=== PATIENT | male | born 1940 | race Caucasian/White ===

== ENCOUNTER 2018-09-01 11:20 | Observation (INO) | payer MEDICARE ==
[~2018-09-01 11:20] MED LIST: traMADol 50 MG Tab**OWN MED PO SCH
--- NOTE | 2018-09-01 13:20 | CT ---
Date of Service: 09/01/18 Clinical Data: TIA UNENHANCED BRAIN CT: Multislice acquisition through the brain without IV contrast was performed. No priors. There is diffuse cerebral atrophy. There are periventricular lucencies bilaterally consistent with small vessel ischemic change. No masses or mass effect. No intracranial hemorrhage. No evidence of acute or subacute infarct. No osseous abnormalities. IMPRESSION: No acute intracranial abnormalities. [id number] [facility]
[2018-09-01] MEDS ORDERED: Acetaminophen 325 MG Tab ONE ×2 (14:14→14:33)
[2018-09-01] MEDS ORDERED: Sodium Chloride 0.9% 1,000 ML IV SCH (14:30)
--- NOTE | 2018-09-01 15:02 | PCM.HP ---
H&P History of Present Illness - General Date of Service: 09/01/18 Admit Problem/Dx: Admission Diagnosis/Problem Admission Diagnosis/Problem Leukocytosis Source of Information: Patient, Family History Limitations: Reports: No Limitations - History of Present Illness Initial Comments - Free Text/Narative: This is a 78yo M seen in the ER for confusion and concerns of TIA symptoms per his . His states he is not acting the same and has difficulty walking and even talking. He denies any concerns today. Onset of Symptoms: Reports: Today, Sudden Duration of Symptoms: Reports: Hour(s):, Resolved Prior to Arrival Location: Reports: Generalized Severity: Moderate Improves with: Reports: None Worsens with: Reports: None Associated Symptoms: Reports: Confusion - Related Data Allergies/Adverse Reactions: Allergies Allergy/AdvReac Type Severity Reaction Status Date / Time No Known Allergies Allergy Verified 03/14/15 10:19 Home Medications: Home Meds Dorzolamide HCl/Timolol Maleat [Dorzolamide-Timolol Eye Drops] 1 drop 03/13/15 [ History] Gemfibrozil 600 mg PO BID 03/13/15 [History] Hydrochlorothiazide/Lisinopril [Lisinopril-HCTZ 20-25 MG] 20 - 25 mg PO DAILY [History] Insuln Asp Prot/Insulin Aspart [NovoLOG Mix 70-30] 56 units SUBCUT BID 03/13/15 [History] Simvastatin 1 tab PO DAILY 03/13/15 [History] Tamsulosin HCl 1 tab PO DAILY 03/13/15 [History] Warfarin [Coumadin] 1.5 tab PO DAILY 03/13/15 [History] amLODIPine Besylate [Amlodipine Besylate] 10 tab PO DAILY 03/13/15 [History] metFORMIN HCl [Metformin HCl ER] 1 tab PO TID 03/13/15 [History] Past Medical History Other HEENT History: throat crushed in 96, drops for glacoma Other Musculoskeletal History: chronic buttock pain - Past Surgical History Other Musculoskeletal Surgeries/Procedures:: L TKA 04/14, R shoulder decompression October 2014, L carpal tunnel surgery Dec 2014 H&P Review of Systems - Review of Systems: Review Of Systems: ROS reveals no pertinent complaints other than HPI. Exam - Exam Exam: See Below - Exam General: Alert, Oriented, Cooperative HEENT: PERRLA, Conjunctiva Clear, EACs Clear, EOMI, Hearing Intact Neck: Supple, Trachea Midline Lungs: Clear to Auscultation, Normal Respiratory Effort Cardiovascular: Regular Rate, Regular Rhythm GI/Abdominal Exam: Normal Bowel Sounds, Soft, Non-Tender Back Exam: Normal Inspection Extremities: Normal Inspection Peripheral Pulses: 2+: Dorsalis Pedis (L), Dorsalis Pedis (R) Skin: Warm, Dry, Intact Neurological: Cranial Nerves Intact Neuro Extensive - Mental Status: Alert, Oriented x3, Normal Mood/Affect, Normal Cognition, Memory Intact Psychiatric: Alert, Normal Affect, Normal Mood - Patient Data Lab Results Last 24 hrs: Laboratory Results - last 24 hr 09/01/18 09/01/18 09/01/18 Range/Units 12:09 12:09 12:09 WBC 17.4 H D (4.0-11.0) K/uL RBC 4.46 L (4.50-6.50) M/uL Hgb 13.6 (13.0-18.0) g/dL Hct 41.4 (40.0-54.0) % MCV 93 (76-96) fL MCH 30.5 (27.0-32.0) pg MCHC 32.9 (31.0-35.0) g/dL RDW 13.5 (11.0-16.0) % Plt Count 184 (150-400) K/uL MPV 10.8 H (6.0-10.0) fL Neut % (Auto) 94.0 H (45.0-70.0) % Lymph % (Auto) 2.2 L (20.0-40.0) % [place] % (Auto) 3.6 (3.0-10.0) % Eos % (Auto) 0.0 L (1.0-5.0) % Baso % (Auto) 0.2 (0.0-0.5) % Neut # (Auto) 16.31 H (2.00-7.50) K/uL Lymph # (Auto) 0.39 L (1.50-4.00) K/uL [place] # (Auto) 0.63 (0.20-0.80) K/uL Eos # (Auto) 0.00 L (0.04-0.40) K/uL Baso # (Auto) 0.03 (0.02-0.10) K/uL PT 14.0 H D (9.0-11.5) sec INR 1.4 D (1.0-3.5) Sodium 134 L (136-145) mmol/L Potassium 4.1 (3.5-5.1) mmol/L Chloride 98 (98-107) mmol/L Carbon Dioxide 25.4 (21.0-32.0) mmol/L Anion Gap 14.7 (5.0-15.0) mmol/L BUN 20 D (8-26) mg/dL Creatinine 1.24 (0.70-1.30) mg/dL Est Cr Clr Drug Dosing TNP Estimated GFR (MDRD) 57 L (>60) MLS/MIN BUN/Creatinine Ratio 16.1 (6-25) Glucose 298 H D (74-100) mg/dL Calcium 8.8 (8.5-10.1) mg/dL Total Bilirubin 1.5 H D (0.0-1.0) mg/dL AST 14 L (15-37) U/L ALT 18 (12-78) U/L Alkaline Phosphatase 80 (46-116) U/L Troponin I < 0.017 (0.000-0.060) ng/mL Total Protein 7.4 (6.4-8.2) g/dL Albumin 3.7 (3.4-5.0) g/dL Globulin 3.7 (2.2-4.2) g/dL Albumin/Globulin Ratio 1.0 (0.8-2.0) TSH, Ultra Sensitive 1.363 (0.358-3.740) uIU/mL Urine Color Urine Appearance (CLEAR) Urine pH (5.0-8.0) Ur Specific [place] (1.003-1.030) Urine Protein (NEGATIVE) mg/dL Urine Glucose (UA) (NEGATIVE) mg/dL Urine Ketones (NEGATIVE) mg/dL Urine Occult Blood (NEGATIVE) Urine Nitrite (NEGATIVE) Urine Bilirubin (NEGATIVE) Urine Urobilinogen (0.2-1.0) E.U./dL Ur Leukocyte Esterase (NEGATIVE) Urine RBC /HPF Urine WBC /HPF Ur Squamous Epith Cells /HPF Urine Bacteria /HPF 09/01/18 Range/Units 13:22 WBC (4.0-11.0) K/uL RBC (4.50-6.50) M/uL Hgb (13.0-18.0) g/dL Hct (40.0-54.0) % MCV (76-96) fL MCH (27.0-32.0) pg MCHC (31.0-35.0) g/dL RDW (11.0-16.0) % Plt Count (150-400) K/uL MPV (6.0-10.0) fL Neut % (Auto) (45.0-70.0) % Lymph % (Auto) (20.0-40.0) % [place] % (Auto) (3.0-10.0) % Eos % (Auto) (1.0-5.0) % Baso % (Auto) (0.0-0.5) % Neut # (Auto) (2.00-7.50) K/uL Lymph # (Auto) (1.50-4.00) K/uL [place] # (Auto) (0.20-0.80) K/uL Eos # (Auto) (0.04-0.40) K/uL Baso # (Auto) (0.02-0.10) K/uL PT (9.0-11.5) sec INR (1.0-3.5) Sodium (136-145) mmol/L Potassium (3.5-5.1) mmol/L Chloride (98-107) mmol/L Carbon Dioxide (21.0-32.0) mmol/L Anion Gap (5.0-15.0) mmol/L BUN (8-26) mg/dL Creatinine (0.70-1.30) mg/dL Est Cr Clr Drug Dosing Estimated GFR (MDRD) (>60) MLS/MIN BUN/Creatinine Ratio (6-25) Glucose (74-100) mg/dL Calcium (8.5-10.1) mg/dL Total Bilirubin (0.0-1.0) mg/dL AST (15-37) U/L ALT (12-78) U/L Alkaline Phosphatase (46-116) U/L Troponin I (0.000-0.060) ng/mL Total Protein (6.4-8.2) g/dL Albumin (3.4-5.0) g/dL Globulin (2.2-4.2) g/dL Albumin/Globulin Ratio (0.8-2.0) TSH, Ultra Sensitive (0.358-3.740) uIU/mL Urine Color Yellow Urine Appearance Clear (CLEAR) Urine pH 7.0 (5.0-8.0) Ur Specific [place] 1.015 (1.003-1.030) Urine Protein Negative (NEGATIVE) mg/dL Urine Glucose (UA) Negative (NEGATIVE) mg/dL Urine Ketones Negative (NEGATIVE) mg/dL Urine Occult Blood Trace-intact H (NEGATIVE) Urine Nitrite Negative (NEGATIVE) Urine Bilirubin Negative (NEGATIVE) Urine Urobilinogen 1.0 (0.2-1.0) E.U./dL Ur Leukocyte Esterase Negative (NEGATIVE) Urine RBC 0-5 H /HPF Urine WBC Not seen /HPF Ur Squamous Epith Cells Not seen /HPF Urine Bacteria Not seen /HPF Result Diagrams: 09/01/18 12:09 09/01/18 12:09 - Problem List (1) Leukocytosis SNOMED Code(s): 584285470, 012471136 ICD Code: D72.829 - ELEVATED WHITE BLOOD CELL COUNT, UNSPECIFIED Status: Acute Current Visit: Yes (2) Fever SNOMED Code(s): 120553704 ICD Code: R50.9 - FEVER, UNSPECIFIED Status: Acute Current Visit: Yes (3) Confusion SNOMED Code(s): 231165945 ICD Code: R41.0 - DISORIENTATION, UNSPECIFIED Status: Acute Current Visit : Yes Problem List Initiated/Reviewed/Updated: Yes Orders Last 24hrs: Active Orders 24 hr Category Date Time Status Patient Status [ADT] Routine ADT 09/01/18 14:53 Active EKG Documentation Completion [RC] ASDIRECTED Care 09/01/18 11:44 Active Oxygen Therapy [RC] PRN Care 09/01/18 14:53 Active Vital Signs [RC] Q4H Care 09/01/18 14:53 Active Regular Diet [DIET] Diet 09/01/18 Dinner Ordered Chest 1V Frontal [CR] Stat Exams 09/01/18 13:24 Taken CULTURE BLOOD [BC] Stat Lab 09/01/18 14:30 Received CULTURE BLOOD [BC] Stat Lab 09/01/18 14:30 Received CULTURE MRSA SURVEY [RM] Routine Lab 09/01/18 14:42 Received INFLUENZA A+B AG SCREEN [RM] Stat Lab 09/01/18 14:30 Received Assessment/Plan Comment:: Patient was found to have a febrile temp of 104.4. He does have leukocytosis and there does not appear to be a focus of infection. We will place in observation and start prophylactic antibiotics and repeat labs in the AM. Discussed plan of care with and patient and they agree with the plan of care.
[2018-09-01] MEDS: Piperacillin/Tazobactam 3.375 GM in Sodium Chloride 0.9% 100 ML IV SCH ×2 (17:50→23:58)
[2018-09-01] MEDS ORDERED: Acetaminophen 325 MG Tab PO PRN (19:00)
[2018-09-01] MEDS ORDERED: Warfarin 7.5 MG Tab PO ONE (19:28)
[2018-09-01] MEDS ORDERED: metFORMIN 500 MG Tab PO ONE (19:28)
[2018-09-01] MEDS ORDERED: Dorzolamide/Timolol 2%-0.5% Ophth Soln 10 ML Bottle EYEBOTH SCH (20:00)
[2018-09-01] MEDS ORDERED: Insuln Aspart Prot/Insulin Aspart 100 Units/ML 3 ML FlexPen SUBCUT SCH (20:00)
[2018-09-02] MEDS: Piperacillin/Tazobactam 3.375 GM in Sodium Chloride 0.9% 100 ML IV SCH (05:51)
[2018-09-02] MEDS ORDERED: CINNAMON BARK PO SCH (08:00)
[2018-09-02] MEDS ORDERED: INSULIN ASPART PROTAMINE SUBCUT SCH (08:00)
[2018-09-02] MEDS ORDERED: Simvastatin 20 MG Tab PO SCH (08:00)
[2018-09-02] MEDS ORDERED: amLODIPine 10 MG Tab PO SCH (08:00)
[2018-09-02] MEDS ORDERED: Calcium Carbonate 600 MG Tab PO SCH (08:00)
[2018-09-02] MEDS ORDERED: INSULIN ASPART SUBCUT SCH (08:00)
[2018-09-02] MEDS ORDERED: Non-Formulary Medication 1 Each (Multivitamin [Multi-Vitamin Daily] 1 TAB) PO SCH (08:00)
[2018-09-02] MEDS ORDERED: metFORMIN 500 MG Tab.ER**OWN MED PO SCH (09:15)
[2018-09-02] MEDS ORDERED: GEMFIBROZIL 600 MG PO SCH (09:15)
[2018-09-02 09:40] VITALS: BP 124/69
[2018-09-02] MEDS ORDERED: Amoxicillin/Clavulanate K 875-125 MG Tab ONE (11:45)
--- NOTE | 2018-09-02 12:48 | PCM.DCSUM1 ---
Discharge Summary - Discharge Data Discharge Date: 09/02/18 Discharge Disposition: Home, Self-Care 01 Condition: Good - Discharge Diagnosis/Problem(s) (1) Leukocytosis SNOMED Code(s): 950060696, 949938996 ICD Code: D72.829 - ELEVATED WHITE BLOOD CELL COUNT, UNSPECIFIED Status: Resolved Current Visit: Yes (2) Fever SNOMED Code(s): 493566343 ICD Code: R50.9 - FEVER, UNSPECIFIED Status: Resolved Current Visit: Yes (3) Confusion SNOMED Code(s): 440690679 ICD Code: R41.0 - DISORIENTATION, UNSPECIFIED Status: Resolved Current Visit: Yes - Discharge Plan Home Medications: Home Meds Dorzolamide HCl/Timolol Maleat [Dorzolamide-Timolol Eye Drops] 1 drop EYEBOTH QPM 03/13/15 [History] Gemfibrozil 600 mg PO BID 03/13/15 [History] Hydrochlorothiazide/Lisinopril [Lisinopril-HCTZ 20-25 MG] 1 tab PO DAILY@1600 [History] Insuln Asp Prot/Insulin Aspart [NovoLOG Mix 70-30] 18 units SUBCUT BID 03/13/15 [History] Tamsulosin HCl 1 tab PO DAILY@1600 03/13/15 [History] Warfarin [Coumadin] 1.5 tab PO ASDIRECTED 03/13/15 [History] amLODIPine Besylate [Amlodipine Besylate] 10 mg PO DAILY@1600 03/13/15 [History] metFORMIN HCl [Metformin HCl ER] 1 tab PO TID@08,16,20 03/13/15 [History] Calcium Carbonate [Calcium] 1 tab PO QPM 09/01/18 [History] Cinnamon Bark [Cinnamon] 2 tab PO QPM 09/01/18 [History] Multivitamin [Multi-Vitamin Daily] 1 tab PO DAILY 09/01/18 [History] traMADol HCl [Tramadol HCl] 100 mg PO BID@0800,1600 09/01/18 [History] Latanoprost 1 drop EYEBOTH QPM 09/02/18 [History] Warfarin Sodium [Jantoven] 1 tab PO ASDIRECTED 09/02/18 [History] Patient Handouts: Fever, Adult, Amoxicillin; Clavulanic Acid tablets, Leukocytosis - Discharge Summary/Plan Comment DC Time >30 min.: No Discharge Summary/Plan Comment: Counseled on finishing antibiotics and side effects including diarrhea and f/u if symptoms persist. Discussed f/u labs and blood culture. Rtc as directed for f /u. Counseled on further monitoring and f/u as needed. - Patient Data Vitals - Most Recent: Last Vital Signs Temp 37.1 C 09/02/18 09:00 Pulse 75 09/02/18 09:00 Resp 16 09/02/18 09:00 BP 124/69 09/02/18 09:00 Pulse Ox 97 09/02/18 09:00 Weight - Most Recent: 109.883 kg I&O - Last 24 hours: Intake & Output 09/01/18 09/02/18 09/02/18 22:59 06:59 14:59 Intake Total 1163 Balance 1163 Lab Results - Last 24 hrs: Laboratory Results - last 24 hr 09/01/18 09/02/18 09/02/18 Range/Units 13:22 08:30 08:30 WBC 11.0 D (4.0-11.0) K/uL RBC 4.02 L (4.50-6.50) M/uL Hgb 12.4 L (13.0-18.0) g/dL Hct 37.7 L (40.0-54.0) % MCV 94 (76-96) fL MCH 30.8 (27.0-32.0) pg MCHC 32.9 (31.0-35.0) g/dL RDW 13.8 (11.0-16.0) % Plt Count 151 (150-400) K/uL MPV 11.4 H (6.0-10.0) fL Neut % (Auto) 85.3 H (45.0-70.0) % Lymph % (Auto) 7.5 L (20.0-40.0) % [place] % (Auto) 6.8 (3.0-10.0) % Eos % (Auto) 0.1 L (1.0-5.0) % Baso % (Auto) 0.3 (0.0-0.5) % Neut # (Auto) 9.36 H (2.00-7.50) K/uL Lymph # (Auto) 0.82 L (1.50-4.00) K/uL [place] # (Auto) 0.75 (0.20-0.80) K/uL Eos # (Auto) 0.01 L (0.04-0.40) K/uL Baso # (Auto) 0.03 (0.02-0.10) K/uL Sodium 139 (136-145) mmol/L Potassium 3.4 L (3.5-5.1) mmol/L Chloride 102 (98-107) mmol/L Carbon Dioxide 23.9 (21.0-32.0) mmol/L Anion Gap 16.5 H (5.0-15.0) mmol/L BUN 23 (8-26) mg/dL Creatinine 1.17 (0.70-1.30) mg/dL Est Cr Clr Drug Dosing 55.46 mL/min Estimated GFR (MDRD) > 60 (>60) MLS/MIN BUN/Creatinine Ratio 19.7 (6-25) Glucose 142 H D (74-100) mg/dL Calcium 8.3 L (8.5-10.1) mg/dL Total Bilirubin 0.9 D (0.0-1.0) mg/dL AST 14 L (15-37) U/L ALT 16 (12-78) U/L Alkaline Phosphatase 61 (46-116) U/L Total Protein 6.7 (6.4-8.2) g/dL Albumin 3.1 L (3.4-5.0) g/dL Globulin 3.6 (2.2-4.2) g/dL Albumin/Globulin Ratio 0.9 (0.8-2.0) Urine Color Yellow Urine Appearance Clear (CLEAR) Urine pH 7.0 (5.0-8.0) Ur Specific [place] 1.015 (1.003-1.030) Urine Protein Negative (NEGATIVE) mg/dL Urine Glucose (UA) Negative (NEGATIVE) mg/dL Urine Ketones Negative (NEGATIVE) mg/dL Urine Occult Blood Trace-intact H (NEGATIVE) Urine Nitrite Negative (NEGATIVE) Urine Bilirubin Negative (NEGATIVE) Urine Urobilinogen 1.0 (0.2-1.0) E.U./dL Ur Leukocyte Esterase Negative (NEGATIVE) Urine RBC 0-5 H /HPF Urine WBC Not seen /HPF Ur Squamous Epith Cells Not seen /HPF Urine Bacteria Not seen /HPF SHON Results - Last 24 hrs: Microbiology 09/01/18 14:42 MRSA Surveillance Culture - Final Nasal, Unspecified NO MRSA ISOLATED 09/01/18 14:30 Influenza Type A Antigen Screen - Final Nasal Aspirate, Unspecified NEGATIVE INFLUENZA A VIRUS AG REFERENCE RANGE: NEGATIVE Influenza Type B Antigen Screen - Final NEGATIVE INFLUENZA B VIRUS AG REFERENCE RANGE: NEGATIVE Med Orders - Current: Current Medications Acetaminophen (Tylenol) 650 mg PO Q4H PRN PRN Reason: Fever Amlodipine Besylate (Norvasc) 10 mg PO DAILY@1600 [facility] Calcium Carbonate/Glycine (Calcium Carbonate) 600 mg PO DAILY [facility] Dorzolamide/Timolol (Cosopt 2%-0.5% Ophth Soln) ml EYEBOTH BID [facility] Piperacillin Sod/Tazobactam (Sod 3.375 gm/ Sodium Chloride) 100 mls @ 100 mls/ hr IV Q6H [facility] Last Admin: 09/02/18 05:51 Dose: 100 mls/hr Sodium Chloride (Normal Saline) 1,000 mls @ 100 mls/hr IV ASDIRECTED [facility] Last Admin: 09/01/18 22:05 Dose: 100 mls/hr Insulin Aspart (Novolog Mix 70-30) 18 unit SUBCUT BID [facility] Metformin HCl (Glucophage Xr) 500 mg PO TID@0800,1600,2000 [facility] Non-Formulary Medication (Cinnamon Bark [Cinnamon]) 1 tab PO DAILY [facility] Gemfibrozil [ Gemfibrozil] 600 Mg* *Own Med 600 mg PO BID [facility] Hydrochlorothiazide/Lisinopril [ Lisinopril-Hctz 20- 25 MgOwn Med 0 mg PO DAILY@1600 [facility] Simvastatin (Zocor) 20 mg PO DAILY [facility] Tamsulosin HCl (Flomax) 0.4 mg PO DAILY@1600 [facility] Tramadol HCl (Ultram) 100 mg PO BID@0800,1600 [facility] Warfarin Sodium (Coumadin) 7.5 mg PO BEDTIME [facility] Discontinued Medications Acetaminophen (Tylenol) Confirm Administered Dose 650 mg .ROUTE .STK-MED ONE Stop: 09/01/18 14:15 Last Admin: 09/01/18 14:30 Dose: 650 mg Acetaminophen (Tylenol) Confirm Administered Dose 325 mg .ROUTE .STK-MED ONE Stop: 09/01/18 14:34 Last Admin: 09/01/18 17:06 Dose: Not Given Amlodipine Besylate (Norvasc) 100 mg PO DAILY [facility] Insulin Aspart (Novolog Mix 70-30) 56 unit SUBCUT BID [facility] Last Admin: 09/01/18 18:10 Dose: 18 unit Metformin HCl (Glucophage) 500 mg PO ONETIME ONE Stop: 09/01/18 19:29 Last Admin: 09/01/18 19:33 Dose: 500 mg Non-Formulary Medication (Multivitamin [Multi-Vitamin Daily]) 1 tab PO DAILY [facility] Warfarin Sodium (Coumadin) 7.5 mg PO ONETIME ONE Stop: 09/01/18 19:29 Last Admin: 09/01/18 19:33 Dose: 7.5 mg
[2018-09-02] MEDS ORDERED: [UNRECOGNIZED DRUG - OTHER] PO SCH (16:00)
[2018-09-02] MEDS ORDERED: HYDROCHLOROTHIAZIDE PO SCH (16:00)
[2018-09-02] MEDS ORDERED: amLODIPine 10 MG Tab**OWN MED PO SCH (16:00)
[2018-09-02] MEDS ORDERED: LISINOPRIL PO SCH (16:00)
[2018-09-02] MEDS ORDERED: Warfarin 5 MG Tab**OWN MED PO SCH (20:00)
--- NOTE | 2018-09-03 11:47 | CR ---
DATE OF SERVICE: 09/01/18 CLINICAL DATA: elevated wbc AP PORTABLE CHEST: No priors. The patient has taken a poor inspiration and is in an apical lordotic position. The heart size is mildly enlarged. The lungs are clear. No pneumothorax. No pleural effusions. No other significant findings. [id number] MTDD
== END 2018-09-02 12:00 | disposition home or self-care (01) ==
LOC: LB.ED 11:20 → LB.MS 14:22 → UNDOADMOB 14:22 → LB.MS 14:53
PROVIDERS: ADMIT Family Medicine; ATTEND Family Medicine
DX: D72.829 Elevated white blood cell count, unspecified (principal); R50.9 Fever, unspecified; R41.0 Disorientation, unspecified; Z79.01 Long term (current) use of anticoagulants; Z79.4 Long term (current) use of insulin; Z79.899 Other long term (current) drug therapy; Z79.891 Long term (current) use of opiate analgesic
CPT/HCPCS: 36415; 70450; 71045; 80053; 81001; 84443; 84484; 85025; 85610; 87040; 87804; 93005; 96365; 96376; 99285-25; A9270-GY; G0378; J1815-GY; J2543; J7030

== ENCOUNTER 2018-09-13 22:31 | Emergency (ER) | payer MEDICARE ==
[2018-09-13 22:59] VITALS: BP 129/63
--- NOTE | 2018-09-14 10:25 | EDM.PDOC ---
ED HPI GENERAL MEDICAL PROBLEM - General Chief Complaint: Skin Complaint Stated Complaint: SWOLLEN, RED FOOT Time Seen by Provider: 09/13/18 23:22 Source of Information: Reports: Patient History Limitations: Reports: No Limitations - History of Present Illness INITIAL COMMENTS - FREE TEXT/NARRATIVE: According to spouse, she noted swelling and redness of the left foot yesterday. The dorsum of the left foot was swollen and red. No pain in the foot or skin. No fever or chills. No trauma to the foot. No joint pain. The swelling and redness has not spread any further. She did give him a tablet of diuretic that she takes and the redness and swelling has improved. Pt was brought in to have the foot checked as she still notices some redness in the area. No other complaints. Onset Date: 09/12/18 Location: Reports: Lower Extremity, Left Severity: Mild Improves with: Reports: None Worsens with: Reports: None Associated Symptoms: Denies: Confusion, Chest Pain, Cough, Diaphoresis, Fever/ Chills, Headaches, Loss of Appetite, Malaise, Nausea/Vomiting, Rash, Shortness of Breath, Syncope, Weakness Treatments HAND PAINTER: Reports: Other (see below) Other Treatments HAND PAINTER: spouse gave him one of her "water pills" - Related Data Allergies Allergy/AdvReac Type Severity Reaction Status Date / Time No Known Allergies Allergy Verified 03/14/15 10:19 Home Meds: Home Meds Dorzolamide HCl/Timolol Maleat [Dorzolamide-Timolol Eye Drops] 1 drop EYEBOTH QPM 03/13/15 [History] Gemfibrozil 600 mg PO BID 03/13/15 [History] Hydrochlorothiazide/Lisinopril [Lisinopril-HCTZ 20-25 MG] 1 tab PO DAILY@1600 [History] Insuln Asp Prot/Insulin Aspart [NovoLOG Mix 70-30] 18 units SUBCUT BID 03/13/15 [History] Tamsulosin HCl 1 tab PO DAILY@1600 03/13/15 [History] Warfarin [Coumadin] 1.5 tab PO ASDIRECTED 03/13/15 [History] amLODIPine Besylate [Amlodipine Besylate] 10 mg PO DAILY@1600 03/13/15 [History] metFORMIN HCl [Metformin HCl ER] 1 tab PO TID@08,16,20 03/13/15 [History] Calcium Carbonate [Calcium] 1 tab PO QPM 09/01/18 [History] Cinnamon Bark [Cinnamon] 2 tab PO QPM 09/01/18 [History] Multivitamin [Multi-Vitamin Daily] 1 tab PO DAILY 09/01/18 [History] traMADol HCl [Tramadol HCl] 100 mg PO BID@0800,1600 09/01/18 [History] Latanoprost 1 drop EYEBOTH QPM 09/02/18 [History] Warfarin Sodium [Jantoven] 1 tab PO ASDIRECTED 09/02/18 [History] Past Medical History HEENT History: Reports: Glaucoma, Impaired Vision Other HEENT History: throat crushed in 96, drops for glacoma Cardiovascular History: Reports: Afib, Hypertension Genitourinary History: Reports: BPH Other Musculoskeletal History: chronic buttock pain Endocrine/Metabolic History: Reports: Diabetes, Type II - Past Surgical History HEENT Surgical History: Reports: Eye Surgery Cardiovascular Surgical History: Reports: None Male Surgical History: Reports: None Endocrine Surgical History: Reports: None Musculoskeletal Surgical History: Reports: Carpal Tunnel, Knee Replacement, Shoulder Surgery Other Musculoskeletal Surgeries/Procedures:: L TKA 04/14, R shoulder decompression October 2014, L carpal tunnel surgery Dec 2014 Social & Family History - Family History Family Medical History: Noncontributory - Caffeine Use Caffeine Use: Reports: Coffee, Soda, Tea - Recreational Drug Use Recreational Drug Use: No ED ROS GENERAL - Review of Systems Review Of Systems: See Below Constitutional: Denies: Fever, Chills, Malaise, Weakness, Fatigue HEENT: Denies: Ear Pain, Rhinitis, Throat Pain Respiratory: Denies: Cough, Sputum Cardiovascular: Denies: Chest Pain, Lightheadedness GI/Abdominal: Denies: Abdominal Pain, Nausea, Vomiting : Denies: Dysuria, Frequency Musculoskeletal: Denies: Joint Pain, Joint Swelling Skin: Reports: Erythema. Denies: Bruising, Pruritis, Rash, Wound Neurological: Reports: No Symptoms ED EXAM, SKIN/RASH Exam: See Below Exam Limited By: No Limitations General Appearance: Alert, WD/WN, No Apparent Distress Eye Exam: Bilateral Eye: EOMI, PERRL Ears: Normal External Exam, Normal Canal, Hearing Grossly Normal, Normal TMs Nose: Normal Inspection, Normal Mucosa, No Blood Throat/Mouth: Normal Inspection, Normal Lips, Normal Teeth, Normal Gums, Normal Oropharynx, Normal Voice, No Airway Compromise Head: Atraumatic, Normocephalic Neck: Normal Inspection, Supple, Non-Tender, Full Range of Motion Respiratory/Chest: No Respiratory Distress, Lungs Clear, Normal Breath Sounds, No Accessory Muscle Use, Chest Non-Tender Cardiovascular: Normal Peripheral Pulses, Regular Rate, Rhythm, No Edema, No Gallop, No JVD, No Murmur, No Rub Extremities: Other (left foot: there is very minimal swelling noted over the dorsum of the foot. Also very mild ertyhema, more of light pink hue noted. There is very minimal warmth. Nontender to palpation. Good ROM of the ankle and foot. No tenderness on deep palpation of the foot and small joints of the foot.) Neurological: Alert, Oriented, CN II-XII Intact, Normal Cognition, Normal Gait, Normal Reflexes, No Motor/Sensory Deficits Course - Vital Signs Text/Narrative:: Apparently patient has had some localized swelling and mild erythema of the left foot since yesterday which is clearing up. There is no fever or chills and the swelling is improving per patient and is spouse. I do not see any signs of infection. Reassured patient and his spouse. If the swelling increases or if he develops severe pain in the foot or redness,fever, he should be seen ANAT. Also he is on Coumadin and does not appear like DVT.. He might have had inflammatory changes of the skin from mild arthritis or grass cut or abrasion, which body is naturally clearing up. There is no need for further workup at this time. Spouse has made appointment with copy lathe tender, which I have advised to keep and followup. Last Recorded V/S: Last Vital Signs Temp 98.9 F 09/13/18 23:25 Pulse 60 09/13/18 22:54 Resp 18 09/13/18 22:54 BP 129/63 09/13/18 22:54 Pulse Ox 100 09/13/18 22:54 Departure - Departure Time of Disposition: 23:45 Disposition: Home, Self-Care 01 Condition: Good Clinical Impression: Localized swelling of left foot - Discharge Information *PRESCRIPTION DRUG MONITORING PROGRAM REVIEWED*: Not Applicable *COPY OF PRESCRIPTION DRUG MONITORING REPORT IN PATIENT [place]AR[place]: Not Applicable Referrals: PCP,None [Primary Care Provider] - Forms: ED Department Discharge Additional Instructions: Monitor for fever (greater than 100.4F), loss of appetite, pain, or chills. Keep appointment with Dr. Green. Keep feet elevated during the day. - Problem List & Annotations (1) Localized swelling of left foot SNOMED Code(s): 15493295009149999 Code(s): R22.42 - LOCALIZED SWELLING, MASS AND LUMP, LEFT LOWER LIMB Status : Acute - Problem List Review Problem List Initiated/Reviewed/Updated: Yes - Assessment/Plan Assessment:: Left foot swelling Plan: Apparently patient has had some localized swelling and mild erythema of the left foot since yesterday which is clearing up. There is no fever or chills and the swelling is improving per patient and is spouse. I do not see any signs of infection. Reassured patient and his spouse. If the swelling increases or if he develops severe pain in the foot or redness,fever, he should be seen ANAT. Also he is on Coumadin and does not appear like DVT.. He might have had inflammatory changes of the skin from mild arthritis or grass cut or abrasion, which body is naturally clearing up. There is no need for further workup at this time. Spouse has made appointment with copy lathe tender, which I have advised to keep and followup.
== END 2018-09-13 23:34 | disposition home or self-care (01) ==
LOC: LB.ED 22:31
DX: R22.42 Localized swelling, mass and lump, left lower limb (principal); E11.9 Type 2 diabetes mellitus without complications; I10 Essential (primary) hypertension; I48.91 Unspecified atrial fibrillation; Z79.84 Long term (current) use of oral hypoglycemic drugs; Z79.899 Other long term (current) drug therapy; Z79.4 Long term (current) use of insulin
CPT/HCPCS: 99282

== ENCOUNTER 2022-10-06 10:02 | Emergency (ER) | payer MEDICARE ==
[2022-10-06 10:45] VITALS: PULSE 75
[2022-10-06 10:55] LABS: BASOPHILS ABSOLUTE AUTO 0.04 K/uL (0.02-0.10); BASOPHILS PERCENT AUTO 0.4 % (0.0-0.5); EOSINOPHILS ABSOLUTE AUTO 0.01 K/uL (0.04-0.40); EOSINOPHILS PERCENT AUTO 0.1 % (1.0-5.0); HEMATOCRIT 21.7 % (40.0-54.0); HEMOGLOBIN 7.5 g/dL (13.0-18.0); LYMPHOCYTES ABSOLUTE AUTO 0.68 K/uL (1.50-4.00); LYMPHOCYTES PERCENT AUTO 6.2 % (20.0-40.0); MEAN CORPUSCULAR HEMOGLOBIN 31.9 pg (27.0-32.0); MEAN CORPUSCULAR HGB CONC 34.6 g/dL (31.0-35.0); MEAN CORPUSCULAR VOLUME 92 fL (76-96); MEAN PLATELET VOLUME 9.6 fL (6.0-10.0); MONOCYTES ABSOLUTE AUTO 0.84 K/uL (0.20-0.80); MONOCYTES PERCENT AUTO 7.7 % (3.0-10.0); NEUTROPHILS ABSOLUTE AUTO 9.34 K/uL (2.00-7.50); NEUTROPHILS PERCENT AUTO 85.6 % (45.0-70.0); PLATELET COUNT,PLT 287 K/uL (150-400); RED BLOOD CELL COUNT 2.35 M/uL (4.50-6.50); RED CELL DISTRIBUTION WIDTH 12.4 % (11.0-16.0); WHITE BLOOD CELL COUNT,WBC 10.9 K/uL (4.0-11.0)
[2022-10-06] MEDS ORDERED: Sodium Chloride 0.9% 1,000 ML IV ONE (11:12)
[2022-10-06] MEDS ORDERED: Sodium Chloride 0.9% 10 ML Syringe FLUSH PRN (11:12)
[2022-10-06 11:23] LABS: ALBUMIN 3.1 g/dL (3.4-5.0); ANION GAP 12.9 mmol/L (5.0-15.0); BILIRUBIN TOTAL 1.3 mg/dL (0.0-1.0); BUN/CREATININE RATIO 25.2 (6-25); CALCIUM 8.9 mg/dL (8.5-10.1); CARBON DIOXIDE,CO2 27.7 mmol/L (21.0-32.0); CREATININE 1.03 mg/dL (0.70-1.30); EST CRCL DRUG DOSING (CG) 59.06 mL/min; POTASSIUM,K 3.6 mmol/L (3.5-5.1); PROTEIN TOTAL,TP 6.2 g/dL (6.4-8.2)
[2022-10-06 11:32] LABS: PROTHROMBIN TIME > 93.9 sec (9.0-11.5)
[2022-10-06 11:33] LABS: INR > 10.0 (1.0-3.5)
[2022-10-06] MEDS ORDERED: Phytonadione 10 MG in Sodium Chloride 0.9% 50 ML IV ONE ×2 (11:37→12:30)
[2022-10-06 11:49] LABS: APPEARANCE,URINE CLEAR (CLEAR); BILIRUBIN,URINE SMALL (NEGATIVE); COLOR,URINE YELLOW; GLUCOSE,URINE NEGATIVE (NEGATIVE); KETONES,URINE NEGATIVE (NEGATIVE); LEUKOCYTE ESTERASE,URINE NEGATIVE (NEGATIVE); NITRITE,URINE NEGATIVE (NEGATIVE); OCCULT BLOOD,URINE MODERATE (NEGATIVE); PROTEIN,URINE NEGATIVE (NEGATIVE)
[2022-10-06 11:53] LABS: SQUAMOUS EPITHELIAL CELLS,UR OCCASIONAL /HPF; WBC,URINE NOT SEEN /HPF
[2022-10-06 12:13] VITALS: BP 116/62
[2022-10-06] MEDS ORDERED: Pantoprazole 80 MG in Sodium Chloride 0.9% 100 ML IV ONE (12:22)
[2022-10-06] MEDS ORDERED: Pantoprazole 40 MG Vial ONE ×2 (13:14→13:19)
== END 2022-10-06 14:10 ==
LOC: LB.ED 10:02
DX: D64.89 Other specified anemias (principal); I95.9 Hypotension, unspecified; I48.91 Unspecified atrial fibrillation; I10 Essential (primary) hypertension; E11.9 Type 2 diabetes mellitus without complications; Z79.01 Long term (current) use of anticoagulants; Z79.4 Long term (current) use of insulin; Z79.899 Other long term (current) drug therapy; W19.XXXA Unspecified fall, initial encounter; Y92.009 Unspecified place in unspecified non-institutional (private) residence as the place of occurrence of the external cause
CPT/HCPCS: 36415; 73502-LT; 74176; 80053; 81001; 85025; 85610; 86850; 86900; 86901; 96365; 96367; 99285-25; A0425; A0429; C9113; J3430; J3490; J7030

== ENCOUNTER 2023-03-14 14:15 | Inpatient (IN) | payer MEDICARE ==
[2023-03-14 16:19] LABS: HEMATOCRIT 40.7 % (40.0-54.0); HEMOGLOBIN 13.9 g/dL (13.0-18.0); MEAN CORPUSCULAR HGB CONC 34.2 g/dL (31.0-35.0); MEAN PLATELET VOLUME 10.4 fL (6.0-10.0); RED BLOOD CELL COUNT 4.48 M/uL (4.50-6.50); RED CELL DISTRIBUTION WIDTH 14.4 % (11.0-16.0); WHITE BLOOD CELL COUNT,WBC 11.1 K/uL (4.0-11.0)
[2023-03-14 16:35] LABS: ALBUMIN 3.7 g/dL (3.4-5.0); ANION GAP 15.7 mmol/L (5.0-15.0); BILIRUBIN TOTAL 1.6 mg/dL (0.0-1.0); BUN/CREATININE RATIO 24.4 (6-25); CALCIUM 9.8 mg/dL (8.5-10.1); CARBON DIOXIDE,CO2 27.6 mmol/L (21.0-32.0); CREATININE 0.78 mg/dL (0.70-1.30); EST CRCL DRUG DOSING (CG) 82.91 mL/min; POTASSIUM,K 4.3 mmol/L (3.5-5.1); PROTEIN TOTAL,TP 7.3 g/dL (6.4-8.2)
[2023-03-14 17:45] LABS: APPEARANCE,URINE SLIGHTLY CLOUDY (CLEAR); BILIRUBIN,URINE SMALL (NEGATIVE); COLOR,URINE YELLOW; GLUCOSE,URINE NEGATIVE (NEGATIVE); KETONES,URINE 15 mg/dL (NEGATIVE); LEUKOCYTE ESTERASE,URINE NEGATIVE (NEGATIVE); NITRITE,URINE NEGATIVE (NEGATIVE); OCCULT BLOOD,URINE NEGATIVE (NEGATIVE); PROTEIN,URINE NEGATIVE (NEGATIVE)
[2023-03-14] MEDS ORDERED: Acetaminophen/HYDROcodone 325-5 MG Tab PO PRN (18:55)
[2023-03-14] MEDS ORDERED: Morphine 2 MG/ML SYRINGE IVPUSH PRN (18:55)
[2023-03-14] MEDS ORDERED: Warfarin 5 MG Tab PO SCH ×2 (19:00→19:56)
[2023-03-14] MEDS ORDERED: 50% Dextrose in Water 50 ML Syringe IVPUSH PRN (19:00)
[2023-03-14] MEDS ORDERED: traMADol 50 MG Tab PO PRN (19:00)
[2023-03-14] MEDS ORDERED: Glucagon,Human Recombinant 1 MG Vial IM PRN (19:00)
[2023-03-14] MEDS ORDERED: Non-Formulary Medication 1 Each (Gemfibrozil [Gemfibrozil] 600 MG Tablet) PO SCH (20:00)
[2023-03-14] MEDS: Insulin Lispro Protamine/Lispro 75-25 100 Units/ML 3 ML KwikPen SUBCUT SCH (21:50)
[2023-03-14] MEDS: Dorzolamide/Timolol 2%-0.5% Ophth Soln 10 ML Bottle EYERT SCH (21:54)
[2023-03-15] MEDS: Tamsulosin 0.4 MG Cap.ER PO SCH (07:42)
[2023-03-15] MEDS: Hydrochlorothiazide 25 MG Tab PO SCH (07:42)
[2023-03-15] MEDS: Cholecalciferol (Vitamin D3) 2,000 Unit Cap PO SCH (07:42)
[2023-03-15] MEDS: Lisinopril 20 MG Tab PO SCH (07:43)
[2023-03-15] MEDS: amLODIPine 10 MG Tab PO SCH (07:43)
[2023-03-15] MEDS: Dorzolamide/Timolol 2%-0.5% Ophth Soln 10 ML Bottle EYERT SCH ×2 (07:44→20:01)
[2023-03-15] MEDS: Insulin Lispro Protamine/Lispro 75-25 100 Units/ML 3 ML KwikPen SUBCUT SCH ×2 (07:45→20:30)
[2023-03-15] MEDS ORDERED: metFORMIN 500 MG Tab.ER PO SCH (08:00)
[2023-03-15] MEDS ORDERED: Non-Formulary Medication 1 Each (Hydrochlorothiazide/Lisinopril [Lisinopril-Hctz 20-25 Mg] PO SCH (08:00)
[2023-03-15] MEDS ORDERED: Non-Formulary Medication 1 Each (Metformin Hcl [Metformin Er Osmotic] 500 MG Tab.Er.24) PO SCH (08:00)
[2023-03-15 10:44] LABS: PROTHROMBIN TIME 42.7 sec (9.0-11.5)
[2023-03-15 10:46] LABS: INR 4.4 (1.0-3.5)
[2023-03-15] MEDS: Fenofibrate,Micronized 67 MG Cap PO SCH (11:54)
[2023-03-15] MEDS ORDERED: Sodium Chloride 0.9% 10 ML Syringe FLUSH PRN (12:21)
[2023-03-15] MEDS ORDERED: Sodium Chloride 0.9% 500 ML IV ONE (12:22)
[2023-03-15] MEDS ORDERED: Zinc Oxide 20% Oint 56.7 GM Tube TOP PRN (16:58)
[2023-03-15] MEDS: metFORMIN 500 MG Tab.ER PO SCH (20:29)
[2023-03-16] MEDS: metFORMIN 500 MG Tab.ER PO SCH ×2 (08:07→20:15)
[2023-03-16] MEDS: Tamsulosin 0.4 MG Cap.ER PO SCH (08:07)
[2023-03-16] MEDS: Hydrochlorothiazide 25 MG Tab PO SCH (08:07)
[2023-03-16] MEDS: Cholecalciferol (Vitamin D3) 2,000 Unit Cap PO SCH (08:08)
[2023-03-16] MEDS: Lisinopril 20 MG Tab PO SCH (08:09)
[2023-03-16] MEDS: Fenofibrate,Micronized 67 MG Cap PO SCH (08:09)
[2023-03-16] MEDS: amLODIPine 10 MG Tab PO SCH (08:10)
[2023-03-16] MEDS: Dorzolamide/Timolol 2%-0.5% Ophth Soln 10 ML Bottle EYERT SCH ×2 (08:10→20:15)
[2023-03-16 08:11] LABS: HEMATOCRIT 34.7 % (40.0-54.0); HEMOGLOBIN 11.5 g/dL (13.0-18.0); MEAN CORPUSCULAR HEMOGLOBIN 31.2 pg (27.0-32.0); MEAN CORPUSCULAR HGB CONC 33.1 g/dL (31.0-35.0); MEAN PLATELET VOLUME 10.2 fL (6.0-10.0); RED BLOOD CELL COUNT 3.69 M/uL (4.50-6.50); WHITE BLOOD CELL COUNT,WBC 6.3 K/uL (4.0-11.0)
[2023-03-16 08:27] LABS: INR 2.6 (1.0-3.5)
[2023-03-16 08:28] LABS: ANION GAP 11.4 mmol/L (5.0-15.0); BUN/CREATININE RATIO 34.9 (6-25); CALCIUM 8.9 mg/dL (8.5-10.1); CARBON DIOXIDE,CO2 27.3 mmol/L (21.0-32.0); CREATININE 0.86 mg/dL (0.70-1.30); EST CRCL DRUG DOSING (CG) 75.19 mL/min; POTASSIUM,K 3.7 mmol/L (3.5-5.1)
[2023-03-16 08:30] LABS: PROTHROMBIN TIME 25.4 sec (9.0-11.5)
[2023-03-16] MEDS: Insulin Lispro Protamine/Lispro 75-25 100 Units/ML 3 ML KwikPen SUBCUT SCH ×2 (09:52→20:16)
[2023-03-16] MEDS: Warfarin 2.5 MG Tab PO SCH (17:22)
[2023-03-17] MEDS: amLODIPine 10 MG Tab PO SCH (08:17)
[2023-03-17] MEDS: metFORMIN 500 MG Tab.ER PO SCH ×2 (08:18→20:12)
[2023-03-17] MEDS: Cholecalciferol (Vitamin D3) 2,000 Unit Cap PO SCH (08:18)
[2023-03-17] MEDS: Hydrochlorothiazide 25 MG Tab PO SCH (08:19)
[2023-03-17] MEDS: Fenofibrate,Micronized 67 MG Cap PO SCH (08:19)
[2023-03-17] MEDS: Lisinopril 20 MG Tab PO SCH (08:19)
[2023-03-17] MEDS: Tamsulosin 0.4 MG Cap.ER PO SCH (08:19)
[2023-03-17] MEDS: Insulin Lispro Protamine/Lispro 75-25 100 Units/ML 3 ML KwikPen SUBCUT SCH ×2 (08:20→20:19)
[2023-03-17 08:21] LABS: HEMATOCRIT 34.4 % (40.0-54.0); HEMOGLOBIN 11.3 g/dL (13.0-18.0); MEAN CORPUSCULAR HEMOGLOBIN 31.3 pg (27.0-32.0); MEAN CORPUSCULAR HGB CONC 32.8 g/dL (31.0-35.0); MEAN PLATELET VOLUME 10.2 fL (6.0-10.0); RED BLOOD CELL COUNT 3.61 M/uL (4.50-6.50); WHITE BLOOD CELL COUNT,WBC 6.4 K/uL (4.0-11.0)
[2023-03-17] MEDS: Dorzolamide/Timolol 2%-0.5% Ophth Soln 10 ML Bottle EYERT SCH ×2 (08:21→20:13)
[2023-03-17 08:24] LABS: INR 1.8 (1.0-3.5)
[2023-03-17 08:28] LABS: PROTHROMBIN TIME 17.8 sec (9.0-11.5)
[2023-03-17 08:33] LABS: ANION GAP 10.6 mmol/L (5.0-15.0); BUN/CREATININE RATIO 36.8 (6-25); CALCIUM 8.9 mg/dL (8.5-10.1); CARBON DIOXIDE,CO2 28.5 mmol/L (21.0-32.0); CREATININE 0.76 mg/dL (0.70-1.30); EST CRCL DRUG DOSING (CG) 85.09 mL/min; POTASSIUM,K 4.1 mmol/L (3.5-5.1)
[2023-03-17] MEDS: Warfarin 2.5 MG Tab PO SCH (17:30)
[2023-03-18 08:15] LABS: INR 1.5 (1.0-3.5)
[2023-03-18 08:17] LABS: PROTHROMBIN TIME 15.3 sec (9.0-11.5)
[2023-03-18 08:23] LABS: ANION GAP 11.7 mmol/L (5.0-15.0); BUN/CREATININE RATIO 37.5 (6-25); CALCIUM 9.3 mg/dL (8.5-10.1); CREATININE 0.72 mg/dL (0.70-1.30); EST CRCL DRUG DOSING (CG) 89.81 mL/min; POTASSIUM,K 3.7 mmol/L (3.5-5.1)
[2023-03-18] MEDS: Insulin Lispro Protamine/Lispro 75-25 100 Units/ML 3 ML KwikPen SUBCUT SCH (09:32)
[2023-03-18] MEDS: Fenofibrate,Micronized 67 MG Cap PO SCH (09:34)
[2023-03-18] MEDS: Lisinopril 20 MG Tab PO SCH (09:34)
[2023-03-18] MEDS: Hydrochlorothiazide 25 MG Tab PO SCH (09:35)
[2023-03-18] MEDS: Cholecalciferol (Vitamin D3) 2,000 Unit Cap PO SCH (09:35)
[2023-03-18] MEDS: metFORMIN 500 MG Tab.ER PO SCH (09:35)
[2023-03-18] MEDS: Tamsulosin 0.4 MG Cap.ER PO SCH (09:35)
[2023-03-18] MEDS: amLODIPine 10 MG Tab PO SCH (09:35)
[2023-03-18] MEDS: Dorzolamide/Timolol 2%-0.5% Ophth Soln 10 ML Bottle EYERT SCH (09:36)
[2023-03-18] MEDS ORDERED: FLU (Fluad Quad) 2023-24(65UP)/MF59C/PF 60 MCG/0.5 ML Syringe IM ONE (11:00)
[2023-03-18 13:53] VITALS: BP 100/59; PULSE 50
== END 2023-03-18 13:25 | disposition home or self-care (01) | DRG 948 ==
LOC: LB.ED 14:15 → UNDOADMIN 18:36 → LB.MS 18:36
PROVIDERS: ADMIT Surgery; ATTEND Surgery
DX: R53.1 Weakness (principal); R53.81 Other malaise; R29.6 Repeated falls; M25.551 Pain in right hip; I48.91 Unspecified atrial fibrillation; Z66 Do not resuscitate; K59.09 Other constipation; E11.9 Type 2 diabetes mellitus without complications; M19.90 Unspecified osteoarthritis, unspecified site; M54.9 Dorsalgia, unspecified; G89.29 Other chronic pain; I10 Essential (primary) hypertension; N40.0 Benign prostatic hyperplasia without lower urinary tract symptoms; Z79.4 Long term (current) use of insulin; Z79.84 Long term (current) use of oral hypoglycemic drugs; Z79.01 Long term (current) use of anticoagulants; Z98.890 Other specified postprocedural states; Z96.659 Presence of unspecified artificial knee joint; W19.XXXA Unspecified fall, initial encounter; Z79.899 Other long term (current) drug therapy; W06.XXXA Fall from bed, initial encounter
CPT/HCPCS: 36415; 74176; 80048; 80053; 81003; 82550; 82947; 85027; 85610; 90694; 97161-GP; 97165-GO; 97530-GO; 99222; 99231; 99238; 99285; A9270-GY; J1815-GY; J7040

== ENCOUNTER 2023-05-29 17:10 | Emergency (ER) | payer MEDICARE ==
[2023-05-29 17:48] VITALS: BP 159/96; PULSE 70
== END 2023-05-29 17:50 | disposition home or self-care (01) ==
LOC: LB.ED 17:10
DX: E11.649 Type 2 diabetes mellitus with hypoglycemia without coma (principal); Z79.899 Other long term (current) drug therapy; Z79.84 Long term (current) use of oral hypoglycemic drugs; Z79.01 Long term (current) use of anticoagulants
CPT/HCPCS: 99284; A0425; A0429

== ENCOUNTER 2024-06-10 22:23 | Emergency (ER) | payer MEDICARE ==
[2024-06-10 23:03] LABS: BASOPHILS ABSOLUTE AUTO 0.03 K/uL (0.02-0.10); BASOPHILS PERCENT AUTO 0.4 % (0.0-0.5); EOSINOPHILS ABSOLUTE AUTO 0.08 K/uL (0.04-0.40); HEMATOCRIT 39.9 % (40.0-54.0); HEMOGLOBIN 13.3 g/dL (13.0-18.0); LYMPHOCYTES ABSOLUTE AUTO 0.52 K/uL (1.50-4.00); LYMPHOCYTES PERCENT AUTO 6.5 % (20.0-40.0); MEAN CORPUSCULAR HEMOGLOBIN 31.8 pg (27.0-32.0); MEAN CORPUSCULAR HGB CONC 33.3 g/dL (31.0-35.0); MEAN CORPUSCULAR VOLUME 96 fL (76-96); MEAN PLATELET VOLUME 11.3 fL (6.0-10.0); MONOCYTES ABSOLUTE AUTO 0.48 K/uL (0.20-0.80); NEUTROPHILS ABSOLUTE AUTO 6.89 K/uL (2.00-7.50); NEUTROPHILS PERCENT AUTO 86.1 % (45.0-70.0); PLATELET COUNT,PLT 213 K/uL (150-400); RED BLOOD CELL COUNT 4.18 M/uL (4.50-6.50); RED CELL DISTRIBUTION WIDTH 13.1 % (11.0-16.0)
[2024-06-10 23:14] LABS: A/G RATIO 1.1 (0.8-2.0); ALANINE AMINOTRANSFERASE,ALT 13 U/L (12-78); ALBUMIN 3.5 g/dL (3.4-5.0); ALKALINE PHOSPHATASE 108 U/L (46-116); ANION GAP 12.2 mmol/L (5.0-15.0); ASPARTATE AMNIOTRANSFERASE,AST 10 U/L (15-37); BLOOD UREA NITROGEN,BUN 15 mg/dL (8-26); BUN/CREATININE RATIO 21.1 (6-25); CALCIUM 9.5 mg/dL (8.5-10.1); CARBON DIOXIDE,CO2 30.4 mmol/L (21.0-32.0); CHLORIDE,CL 100 mmol/L (98-107); CREATININE 0.71 mg/dL (0.70-1.30); EST CRCL DRUG DOSING (CG) 82.34 mL/min; ESTIMATED GFR 92 mL/min (>60); GLUCOSE RANDOM 204 mg/dL (74-100); POTASSIUM,K 3.6 mmol/L (3.5-5.1); PROTEIN TOTAL,TP 6.6 g/dL (6.4-8.2); SODIUM,NA 139 mmol/L (136-145)
[2024-06-10 23:22] LABS: C-REACTIVE PROTEIN < 5.0 mg/L (<5.0)
[2024-06-10 23:35] LABS: INFLUENZA A NAA NEGATIVE (NEGATIVE); INFLUENZA B NAA NEGATIVE (NEGATIVE); RESPIRATORY SYNCYTIAL VIR NAA NEGATIVE (NEGATIVE)
[2024-06-10 23:38] LABS: CORONAVIRUS COVID-19 NAA NEGATIVE (NEGATIVE)
[2024-06-10] MEDS: Iopamidol 612 MG/ML 100 ML Bottle IV PRN (23:50)
[2024-06-10] MEDS: Sodium Chloride 0.9% 50 ML SDV FLUSH SCH (23:50)
[2024-06-11 00:59] VITALS: BP 140/81; PULSE 74
[2024-06-11 05:19] LABS: APPEARANCE,URINE CLOUDY (CLEAR); COLOR,URINE YELLOW
[2024-06-11 05:20] LABS: BILIRUBIN,URINE NEGATIVE (NEGATIVE); GLUCOSE,URINE NEGATIVE (NEGATIVE); KETONES,URINE NEGATIVE (NEGATIVE); LEUKOCYTE ESTERASE,URINE NEGATIVE (NEGATIVE); NITRITE,URINE NEGATIVE (NEGATIVE); OCCULT BLOOD,URINE NEGATIVE (NEGATIVE); PROTEIN,URINE NEGATIVE (NEGATIVE)
== END 2024-06-11 01:20 | disposition home or self-care (01) ==
LOC: LB.ED 22:23
DX: K59.04 Chronic idiopathic constipation (principal); E11.9 Type 2 diabetes mellitus without complications; I10 Essential (primary) hypertension; M19.90 Unspecified osteoarthritis, unspecified site; Z96.659 Presence of unspecified artificial knee joint; Z79.82 Long term (current) use of aspirin; Z79.84 Long term (current) use of oral hypoglycemic drugs; Z79.899 Other long term (current) drug therapy
CPT/HCPCS: 0241U; 36415; 71046; 74177; 80053; 81003; 85025; 86140; 99285; J3490; Q9967; A0425; A0428

== ENCOUNTER 2024-06-30 07:04 | Inpatient (IN) | payer MEDICARE ==
[2024-06-30 08:09] LABS: BASOPHILS ABSOLUTE AUTO 0.04 K/uL (0.02-0.10); BASOPHILS PERCENT AUTO 0.2 % (0.0-0.5); EOSINOPHILS ABSOLUTE AUTO 0.01 K/uL (0.04-0.40); EOSINOPHILS PERCENT AUTO 0.1 % (1.0-5.0); HEMATOCRIT 41.6 % (40.0-54.0); HEMOGLOBIN 14.3 g/dL (13.0-18.0); LYMPHOCYTES ABSOLUTE AUTO 0.34 K/uL (1.50-4.00); MEAN CORPUSCULAR HEMOGLOBIN 32.4 pg (27.0-32.0); MEAN CORPUSCULAR HGB CONC 34.4 g/dL (31.0-35.0); MEAN CORPUSCULAR VOLUME 94 fL (76-96); MONOCYTES ABSOLUTE AUTO 0.73 K/uL (0.20-0.80); MONOCYTES PERCENT AUTO 4.2 % (3.0-10.0); NEUTROPHILS ABSOLUTE AUTO 16.16 K/uL (2.00-7.50); NEUTROPHILS PERCENT AUTO 93.5 % (45.0-70.0); PLATELET COUNT,PLT 243 K/uL (150-400); RED BLOOD CELL COUNT 4.41 M/uL (4.50-6.50); RED CELL DISTRIBUTION WIDTH 13.3 % (11.0-16.0); WHITE BLOOD CELL COUNT,WBC 17.3 K/uL (4.0-11.0)
[2024-06-30 08:18] LABS: BUN/CREATININE RATIO 35.5 (6-25); CALCIUM 9.8 mg/dL (8.5-10.1); CARBON DIOXIDE,CO2 29.2 mmol/L (21.0-32.0); CREATININE 1.69 mg/dL (0.70-1.30); EST CRCL DRUG DOSING (CG) 34.59 mL/min; POTASSIUM,K 3.2 mmol/L (3.5-5.1)
[2024-06-30] MEDS: NS + KCl 20mEq/L 1,000 ML IV SCH (09:06)
[2024-06-30] MEDS ORDERED: Ondansetron 4 MG/2 ML SDV IV PRN (09:24)
[2024-06-30] MEDS: Lidocaine 5% 700 MG Patch TOP SCH (19:52)
[2024-06-30] MEDS: metFORMIN 500 MG Tab.ER PO SCH (19:53)
[2024-06-30] MEDS: Nystatin Topical Powder 15 GM Bottle TOP SCH (20:00)
[2024-06-30] MEDS: Sodium Chloride 0.9% 1,000 ML IV SCH (22:43)
[2024-07-01 07:56] LABS: BASOPHILS ABSOLUTE AUTO 0.03 K/uL (0.02-0.10); BASOPHILS PERCENT AUTO 0.2 % (0.0-0.5); HEMATOCRIT 37.8 % (40.0-54.0); HEMOGLOBIN 12.8 g/dL (13.0-18.0); LYMPHOCYTES ABSOLUTE AUTO 0.27 K/uL (1.50-4.00); LYMPHOCYTES PERCENT AUTO 1.8 % (20.0-40.0); MEAN CORPUSCULAR HEMOGLOBIN 32.2 pg (27.0-32.0); MEAN CORPUSCULAR HGB CONC 33.9 g/dL (31.0-35.0); MEAN CORPUSCULAR VOLUME 95 fL (76-96); MEAN PLATELET VOLUME 11.5 fL (6.0-10.0); MONOCYTES ABSOLUTE AUTO 0.84 K/uL (0.20-0.80); MONOCYTES PERCENT AUTO 5.6 % (3.0-10.0); NEUTROPHILS ABSOLUTE AUTO 13.79 K/uL (2.00-7.50); NEUTROPHILS PERCENT AUTO 92.4 % (45.0-70.0); PLATELET COUNT,PLT 187 K/uL (150-400); RED BLOOD CELL COUNT 3.98 M/uL (4.50-6.50); RED CELL DISTRIBUTION WIDTH 13.4 % (11.0-16.0); WHITE BLOOD CELL COUNT,WBC 14.9 K/uL (4.0-11.0)
[2024-07-01] MEDS ORDERED: Non-Formulary Medication 1 Each (Hydrochlorothiazide/Lisinopril [Lisinopril-Hctz 20-25 Mg] PO SCH (08:00)
[2024-07-01 08:04] LABS: ANION GAP 13.8 mmol/L (5.0-15.0); BUN/CREATININE RATIO 41.1 (6-25); CALCIUM 9.1 mg/dL (8.5-10.1); CARBON DIOXIDE,CO2 26.5 mmol/L (21.0-32.0); CREATININE 1.8 mg/dL (0.70-1.30); EST CRCL DRUG DOSING (CG) 28.99 mL/min; POTASSIUM,K 3.3 mmol/L (3.5-5.1)
[2024-07-01] MEDS: Aspirin 325 MG Tab.EC PO SCH (08:17)
[2024-07-01] MEDS: Hydrochlorothiazide 25 MG Tab PO SCH ×2 (08:17→19:52)
[2024-07-01] MEDS: Lisinopril 20 MG Tab PO SCH ×2 (08:18→19:53)
[2024-07-01] MEDS: amLODIPine 5 MG Tab PO SCH (08:18)
[2024-07-01] MEDS: Cyanocobalamin (Vitamin B12) 1,000 MCG Tab PO SCH (08:19)
[2024-07-01] MEDS ORDERED: Sodium Chloride 0.9% 10 ML Syringe FLUSH PRN (12:54)
[2024-07-01] MEDS ORDERED: NS + KCl 20mEq/L 1,000 ML IV SCH (13:00)
[2024-07-01] MEDS: Ferrous Sulfate 325 MG Tab PO SCH (14:34)
[2024-07-01] MEDS: Acetaminophen 325 MG Tab PO PRN (19:49)
[2024-07-02] MEDS: Sodium Chloride 0.9% 1,000 ML IV SCH (08:38)
[2024-07-02] MEDS: Potassium Chloride Riders 10 MEQ in Premix Bag 1 BAG IV ONE ×2 (08:38→11:36)
[2024-07-02 09:01] LABS: BASOPHILS ABSOLUTE AUTO 0.01 K/uL (0.02-0.10); BASOPHILS PERCENT AUTO 0.1 % (0.0-0.5); HEMATOCRIT 35.7 % (40.0-54.0); LYMPHOCYTES PERCENT AUTO 2.1 % (20.0-40.0); MEAN CORPUSCULAR HEMOGLOBIN 32.2 pg (27.0-32.0); MEAN CORPUSCULAR HGB CONC 33.6 g/dL (31.0-35.0); MEAN CORPUSCULAR VOLUME 96 fL (76-96); MEAN PLATELET VOLUME 12.2 fL (6.0-10.0); MONOCYTES ABSOLUTE AUTO 0.69 K/uL (0.20-0.80); MONOCYTES PERCENT AUTO 4.9 % (3.0-10.0); NEUTROPHILS PERCENT AUTO 92.9 % (45.0-70.0); PLATELET COUNT,PLT 160 K/uL (150-400); RED BLOOD CELL COUNT 3.73 M/uL (4.50-6.50); RED CELL DISTRIBUTION WIDTH 13.4 % (11.0-16.0); WHITE BLOOD CELL COUNT,WBC 14.1 K/uL (4.0-11.0)
[2024-07-02 09:51] LABS: ANION GAP 13.7 mmol/L (5.0-15.0); BUN/CREATININE RATIO 35.3 (6-25); CALCIUM 8.9 mg/dL (8.5-10.1); CARBON DIOXIDE,CO2 24.7 mmol/L (21.0-32.0); CREATININE 2.72 mg/dL (0.70-1.30); EST CRCL DRUG DOSING (CG) 19.18 mL/min; POTASSIUM,K 3.4 mmol/L (3.5-5.1)
[2024-07-02] MEDS: Magnesium Hydroxide 400 MG/5 ML Susp 30 ML Cup PO ONE (15:24)
[2024-07-03 01:23] VITALS: BP 112/74; PULSE 79
== END 2024-07-03 04:00 | disposition expired | DRG 683 ==
LOC: LB.ED 07:04 → LB.MS 09:30
PROVIDERS: ADMIT Family Medicine; ATTEND Family Medicine
DX: N17.9 Acute kidney failure, unspecified (principal); E44.0 Moderate protein-calorie malnutrition; I13.0 Hypertensive heart and chronic kidney disease with heart failure and stage 1 through stage 4 chronic kidney disease, or unspecified chronic kidney disease; K59.00 Constipation, unspecified; I48.11 Longstanding persistent atrial fibrillation; I10 Essential (primary) hypertension; E11.9 Type 2 diabetes mellitus without complications; E86.0 Dehydration; N18.9 Chronic kidney disease, unspecified; E11.22 Type 2 diabetes mellitus with diabetic chronic kidney disease; Z66 Do not resuscitate; I50.9 Heart failure, unspecified; N40.0 Benign prostatic hyperplasia without lower urinary tract symptoms; M19.90 Unspecified osteoarthritis, unspecified site; E87.6 Hypokalemia; S50.11XA Contusion of right forearm, initial encounter; Z96.652 Presence of left artificial knee joint; M40.209 Unspecified kyphosis, site unspecified; H54.7 Unspecified visual loss; K59.09 Other constipation; R79.89 Other specified abnormal findings of blood chemistry; R62.7 Adult failure to thrive; R34 Anuria and oliguria; W19.XXXA Unspecified fall, initial encounter; Z79.899 Other long term (current) drug therapy; Z79.84 Long term (current) use of oral hypoglycemic drugs; Z79.82 Long term (current) use of aspirin; Z98.890 Other specified postprocedural states; Z68.20 Body mass index [BMI] 20.0-20.9, adult
CPT/HCPCS: 36415; 71101-RT; 74019; 80048; 82550; 82947; 83880; 84443; 85025; 97161-GP; 99222; 99232; 99238; 99285; A0425; A0428; A9270-GY; J3480; J7030